=== PATIENT | female | born 1960 | race Caucasian/White ===

== ENCOUNTER → 2017-01-20 | Outpatient (CLI) | payer OTHER ==
[~2017-01-20] MED LIST: ASPIRIN FOR CHI81 MG PO; AVAPRO300 MG PO; BENICAR20 MG PO; BYETTA250 MCG/ML PO; CINNAMON500 MG PO; CRESTOR10 MG PO; CYMBALTA30 MG PO; CYMBALTA60 MG PO; DILAUDID2 M1 PO; EXFORGE 10 MG-31 TAB PO; GLIPIZIDE10 MG PO; GLUCOTROL PO; MICARDIS40 MG PO; NOVOLOG MI100 UNITS1 SC; OMNICEF 300 MG300 MG PO; PLAVIX75 MG PO; SYNTHROID 0.0.075 MG PO
== END ==
LOC: LAB 17:05
DX: Z79.01 Long term (current) use of anticoagulants (principal); Z51.81 Encounter for therapeutic drug level monitoring; Z86.73 Personal history of transient ischemic attack (TIA), and cerebral infarction without residual deficits

== ENCOUNTER → 2017-02-03 | Outpatient (CLI) | payer OTHER ==
[2017-02-03 18:22] LABS: BUN 20 mg/dL (7-18)
[2017-02-03 18:28] LABS: GFR (ESTIMATED) 74 ML/MIN (59-)
== END ==
LOC: LAB 17:00
PROVIDERS: Internal Medicine
DX: E11.42 Type 2 diabetes mellitus with diabetic polyneuropathy (principal); Z86.711 Personal history of pulmonary embolism; Z86.73 Personal history of transient ischemic attack (TIA), and cerebral infarction without residual deficits

== ENCOUNTER → 2017-02-17 | Outpatient (CLI) | payer OTHER | LOC: LAB 17:49 | DX: Z86.73 Personal history of transient ischemic attack (TIA), and cerebral infarction without residual deficits (principal); Z79.01 Long term (current) use of anticoagulants; Z51.81 Encounter for therapeutic drug level monitoring ==